=== PATIENT | female | born 1980 | race Caucasian/White ===

== ENCOUNTER 2017-09-23 21:32 | Emergency (ER) | payer OTHER ==
[2017-09-23 21:47] VITALS: RESP 16
[2017-09-23 23:12] LABS: Appearance,Urine Clear (Clear); Bilirubin,Urine Negative (Negative); Blood,Urine Negative (Negative); Color,Urine Colorless; Glucose,Urine (UA) Negative (Negative); Ketones,Urine Negative (Negative); Leukocyte Esterase,Urine Negative (Negative); Nitrite,Urine Negative (Negative); PH, Urine 7.5 (5.0-8.0); Protein,Urine Negative (Negative); Specific Gravity,Urine 1.005 (1.001-1.035); Urobilinogen,Urine <2.0 mg/dL (<2.0)
[2017-09-23 23:22] LABS: Amphetamine Screen,Urine Not Detected (NotDetected); Barbiturate Screen,Urine Detected (NotDetected); Benzodiazepines Screen,Urine Not Detected (NotDetected); Cocaine Screen,Urine Not Detected (NotDetected); Methadone Screen, Urine Not Detected (NotDetected); Opiate Screen,Urine Not Detected (NotDetected); Oxycodone Screen, Urine Not Detected (NotDetected); Phencyclidine Screen,Urine Not Detected (NotDetected); Tricyclic Antidepressant,Urine Not Detected (NotDetected); Urn Cannabinoid Scrn Not Detected (NotDetected)
[2017-09-23 23:34] LABS: Basophils % (A) 1 %; Eosinophils # (A) 0.2 k/uL (0-0.7); Eosinophils % (A) 2 %; HGB 13.3 gm/dL (11.4-16.0); Lymphocytes # (A) 2.9 k/uL (1.0-4.8); Lymphocytes % (A) 36 %; MCH 31.3 pg (25.0-35.0); MCHC 33.2 g/dL (31.0-37.0); MCV 94.4 fL (80.0-100.0); Mean Platelet Volume 7.1; Monocytes # (A) 0.5 k/uL (0-1.0); Monocytes % (A) 7 %; Neutrophils # (A) 4.4 k/uL (1.3-7.7); Neutrophils % (A) 54 %; Platelet Count 229 k/uL (150-450); RBC 4.24 m/uL (3.80-5.40); WBC 8.2 k/uL (3.8-10.6)
[2017-09-23 23:39] LABS: Anion Gap 15 mmol/L; Blood Urea Nitrogen 13 mg/dL (7-17); Calcium 9.4 mg/dL (8.4-10.2); Carbon Dioxide 20 mmol/L (22-30); Chloride 109 mmol/L (98-107); Glucose 108 mg/dL (74-99); Potassium 3.8 mmol/L (3.5-5.1); Sodium 144 mmol/L (137-145)
--- NOTE | 2017-09-23 23:55 | ED ---
Psych HPI - General Chief Complaint: Psychiatric Symptoms Stated Complaint: Mental Health Time Seen by Provider: 09/23/17 21:59 Source: EMS Mode of arrival: EMS - History of Present Illness Initial Comments: 36 years old female with a history of depression and some mental illness comes with her dad about her being depressed and assisted living where she is staying they were concerned about her mood swings he denies any suicidal ideation or there was no history of self-harm in the past and she has no medical complaints no headaches no chest pain or shortness of breath no abdominal pain no frequency urgency dysuria she denies any suicidal or homicidal ideation - Related Data Home Medications Medication Instructions Recorded Confirmed Ammonium Lactate Lotion 1 applic TOPICAL DAILY 09/23/17 09/23/17 [Lac-Hydrin 12% Lotion] Aspirin 81 mg PO DAILY 09/23/17 09/23/17 Butalb/APAP/Caff 50-325-40Mg 1 tab PO BID PRN 09/23/17 09/23/17 [Fioricet 50-325-40] Eslicarbazepine Acetate [Aptiom] 800 mg PO DAILY 09/23/17 09/23/17 Fluticasone Nasal [place] [Flonase 2 spr EA NOSTRIL DAILY 09/23/17 09/23/17 Nasal [place]] LORazepam [Ativan] 0.5 mg PO DAILY PRN 09/23/17 09/23/17 Lacosamide [Vimpat] 100 mg PO BID 09/23/17 09/23/17 Loperamide [Imodium] 2 mg PO DAILY PRN 09/23/17 09/23/17 Loratadine [Claritin] 10 mg PO DAILY PRN 09/23/17 09/23/17 Melatonin 2 mg PO HS 09/23/17 09/23/17 Polyethylene Glycol 3350 [Miralax] 17 gm PO Q72H PRN 09/23/17 09/23/17 Prazosin [Minipress] 2 mg PO HS 09/23/17 09/23/17 Propranolol HCl [Inderal Xl] 80 mg PO DAILY 09/23/17 09/23/17 Ranitidine HCl [Zantac] 150 mg PO BID PRN 09/23/17 09/23/17 Topiramate [Topamax] 100 mg PO BID 09/23/17 09/23/17 Topiramate [Trokendi Xr] 200 mg PO BID 09/23/17 09/23/17 fluvoxaMINE MALEATE [Fluvoxamine 150 mg PO BID 09/23/17 09/23/17 Maleate] guaiFENesin [guaiFENesin Oral 10 mg PO Q6H PRN 09/23/17 09/23/17 Solution] risperiDONE [RisperDAL] 1 mg PO BID 09/23/17 09/23/17 Allergies Allergy/AdvReac Type Severity Reaction Status Date / Time Sulfa (Sulfonamide Allergy Rash/Hives Verified 09/23/17 21:47 Antibiotics) Review of Systems ROS Statement: Those systems with pertinent positive or pertinent negative responses have been documented in the HPI. ROS Other: All systems not noted in ROS Statement are negative. Past Medical History Past Medical History: Hyperlipidemia, Hypertension, Seizure Disorder Additional Past Medical History / Comment(s): cognitive disorder History of Any Multi-Drug Resistant Organisms: None Reported Past Surgical History: No Surgical Hx Reported Past Psychological History: PTSD Smoking Status: Current every day smoker Past Alcohol Use History: Occasional Past Drug Use History: None Reported General Exam - General Exam Comments Initial Comments: General: The patient is awake and alert, in no distress, and does not appear acutely ill. She looks somewhat anxious Skin: Skin is warm and dry and no rashes or lesions are noted. Eye: Pupils are equal, round and reactive to light, extra-ocular movements are intact; there is normal conjunctiva bilaterally. Ears, nose, mouth and throat: There are moist mucous membranes and no oral lesions. Neck: The neck is supple, there is no tenderness or JVD. Cardiovascular: There is a regular rate and rhythm. No murmur, rub or gallop is appreciated. Respiratory: To auscultation bilateral, no wheezing no rhonchi no distress respiratory kuhn noticed Gastrointestinal: Soft, non-distended, non-tender abdomen without masses or organomegaly noted. There is no rebound or guarding present. Bowel sounds are unremarkable. Back: There is no tenderness to palpation in the midline. There is no obvious deformity. Musculoskeletal: Normal ROM, no tenderness, There is no pedal edema. There is no calf tenderness or swelling. No cords were appreciated. Neurological: CN II-XII intact, Cranial nerves III through XII are intact. There are no obvious motor or sensory deficits. Coordination appears grossly intact. Speech is normal. Psychiatric: Cooperative, denies any suicidal or homicidal ideation, Limitations: altered mental status Course Vital Signs 09/23/17 21:36 Temperature 99.0 F Pulse Rate 58 L Respiratory 16 Rate Blood Pressure 133/60 O2 Sat by Pulse 97 Oximetry She was evaluated by psychiatry, they're comfortable sending her back to assisted living and then she will follow-up according to their recommendations him I reviewed her labs CBC, His metabolic panel, urinalysis all are unremarkable Medical Decision Making - Lab Data Result diagrams: 09/23/17 23:13 09/23/17 23:13 Lab Results 09/23/17 09/23/17 09/23/17 Range/Units 23:03 23:03 23:13 WBC (3.8-10.6) k/uL RBC (3.80-5.40) m/uL Hgb (11.4-16.0) gm/dL Hct (34.0-46.0) % MCV (80.0-100.0) fL MCH (25.0-35.0) pg MCHC (31.0-37.0) g/dL RDW (11.5-15.5) % Plt Count (150-450) k/uL Neutrophils % % Lymphocytes % % Monocytes % % Eosinophils % % Basophils % % Neutrophils # (1.3-7.7) k/uL Lymphocytes # (1.0-4.8) k/uL Monocytes # (0-1.0) k/uL Eosinophils # (0-0.7) k/uL Basophils # (0-0.2) k/uL Sodium 144 (137-145) mmol/L Potassium 3.8 (3.5-5.1) mmol/L Chloride 109 H (98-107) mmol/L Carbon Dioxide 20 L (22-30) mmol/L Anion Gap 15 mmol/L BUN 13 (7-17) mg/dL Creatinine 0.80 (0.52-1.04) mg/dL Est GFR (CKD-EPI)AfAm >90 (>60 ml/min/1.73 sqM) Est GFR (CKD-EPI)NonAf >90 (>60 ml/min/1.73 sqM) Glucose 108 H (74-99) mg/dL Calcium 9.4 (8.4-10.2) mg/dL Urine Color Colorless Urine Appearance Clear (Clear) Urine pH 7.5 (5.0-8.0) Ur Specific [place] 1.005 (1.001-1.035) Urine Protein Negative (Negative) Urine Glucose (UA) Negative (Negative) Urine Ketones Negative (Negative) Urine Blood Negative (Negative) Urine Nitrite Negative (Negative) Urine Bilirubin Negative (Negative) Urine Urobilinogen <2.0 (<2.0) mg/dL Ur Leukocyte Esterase Negative (Negative) Urine HCG, Qual Not Detected (Not Detectd) Urine Opiates Screen Not Detected (NotDetected) Ur Oxycodone Screen Not Detected (NotDetected) Urine Methadone Screen Not Detected (NotDetected) Ur Propoxyphene Screen Not Detected (NotDetected) Ur Barbiturates Screen Detected H (NotDetected) U Tricyclic Antidepress Not Detected (NotDetected) Ur Phencyclidine Scrn Not Detected (NotDetected) Ur Amphetamines Screen Not Detected (NotDetected) U Methamphetamines Scrn Not Detected (NotDetected) U Benzodiazepines Scrn Not Detected (NotDetected) Urine Cocaine Screen Not Detected (NotDetected) U Marijuana (THC) Screen Not Detected (NotDetected) 09/23/17 Range/Units 23:13 WBC 8.2 (3.8-10.6) k/uL RBC 4.24 (3.80-5.40) m/uL Hgb 13.3 (11.4-16.0) gm/dL Hct 40.0 (34.0-46.0) % MCV 94.4 (80.0-100.0) fL MCH 31.3 (25.0-35.0) pg MCHC 33.2 (31.0-37.0) g/dL RDW 13.0 (11.5-15.5) % Plt Count 229 (150-450) k/uL Neutrophils % 54 % Lymphocytes % 36 % Monocytes % 7 % Eosinophils % 2 % Basophils % 1 % Neutrophils # 4.4 (1.3-7.7) k/uL Lymphocytes # 2.9 (1.0-4.8) k/uL Monocytes # 0.5 (0-1.0) k/uL Eosinophils # 0.2 (0-0.7) k/uL Basophils # 0.0 (0-0.2) k/uL Sodium (137-145) mmol/L Potassium (3.5-5.1) mmol/L Chloride (98-107) mmol/L Carbon Dioxide (22-30) mmol/L Anion Gap mmol/L BUN (7-17) mg/dL Creatinine (0.52-1.04) mg/dL Est GFR (CKD-EPI)AfAm (>60 ml/min/1.73 sqM) Est GFR (CKD-EPI)NonAf (>60 ml/min/1.73 sqM) Glucose (74-99) mg/dL Calcium (8.4-10.2) mg/dL Urine Color Urine Appearance (Clear) Urine pH (5.0-8.0) Ur Specific [place] (1.001-1.035) Urine Protein (Negative) Urine Glucose (UA) (Negative) Urine Ketones (Negative) Urine Blood (Negative) Urine Nitrite (Negative) Urine Bilirubin (Negative) Urine Urobilinogen (<2.0) mg/dL Ur Leukocyte Esterase (Negative) Urine HCG, Qual (Not Detectd) Urine Opiates Screen (NotDetected) Ur Oxycodone Screen (NotDetected) Urine Methadone Screen (NotDetected) Ur Propoxyphene Screen (NotDetected) Ur Barbiturates Screen (NotDetected) U Tricyclic Antidepress (NotDetected) Ur Phencyclidine Scrn (NotDetected) Ur Amphetamines Screen (NotDetected) U Methamphetamines Scrn (NotDetected) U Benzodiazepines Scrn (NotDetected) Urine Cocaine Screen (NotDetected) U Marijuana (THC) Screen (NotDetected) Disposition Clinical Impression: Depression Disposition: HOME SELF-CARE Condition: Good Instructions: Depression (ED) Is patient prescribed a controlled substance at d/c from ED?: No If prescribed controlled substance>3 days was MAPS reviewed?: No When asked, does pt state using other controlled substances?: No Referrals: Sunshine Shipley DO [Primary Care Provider] - 1-2 days
[2017-09-24 00:19] VITALS: BP 128/80; PULSE 60; TEMP 98.7
== END 2017-09-24 00:24 | disposition home or self-care (01) ==
LOC: EEVIPCON 21:32 → EC 21:32
DX: F32.9 Major depressive disorder, single episode, unspecified (principal); R41.82 Altered mental status, unspecified; I10 Essential (primary) hypertension; G40.909 Epilepsy, unspecified, not intractable, without status epilepticus; F17.200 Nicotine dependence, unspecified, uncomplicated; Z79.51 Long term (current) use of inhaled steroids; Z79.82 Long term (current) use of aspirin; Z79.899 Other long term (current) drug therapy; Z88.2 Allergy status to sulfonamides
CPT/HCPCS: 36415; 80048; 80306; 81003; 81025; 82075; 85025; 99284

== ENCOUNTER 2017-09-25 17:26 | Inpatient (IN) | payer MEDICAID, OTHER ==
--- NOTE | 2017-09-25 19:11 | ED ---
General Adult HPI - General Chief complaint: Psychiatric Symptoms Stated complaint: Mental Health Eval Time Seen by Provider: 09/25/17 18:17 Source: family (Father), Caregiver Mode of arrival: ambulatory Limitations: no limitations - History of Present Illness Initial comments: This patient is a 36-year-old woman who presents to have psychiatric evaluation. The patient was seen here on Tuesday for having some suicidal thoughts and depressed mood. At that time it was felt that she was a good candidate for outpatient therapy, and she was discharged. The patient has subsequently reported to her father that she has considered cutting her wrists using a broken glass. As the patient's symptoms seem to be worsening she returns here for reevaluation. -: days(s) - Related Data Home Medications Medication Instructions Recorded Confirmed Ammonium Lactate Lotion 1 applic TOPICAL DAILY 09/23/17 09/23/17 [Lac-Hydrin 12% Lotion] Aspirin 81 mg PO DAILY 09/23/17 09/23/17 Butalb/APAP/Caff 50-325-40Mg 1 tab PO BID PRN 09/23/17 09/23/17 [Fioricet 50-325-40] Eslicarbazepine Acetate [Aptiom] 800 mg PO DAILY 09/23/17 09/23/17 Fluticasone Nasal [place] [Flonase 2 spr EA NOSTRIL DAILY 09/23/17 09/23/17 Nasal [place]] LORazepam [Ativan] 0.5 mg PO DAILY PRN 09/23/17 09/23/17 Lacosamide [Vimpat] 100 mg PO BID 09/23/17 09/23/17 Loperamide [Imodium] 2 mg PO DAILY PRN 09/23/17 09/23/17 Loratadine [Claritin] 10 mg PO DAILY PRN 09/23/17 09/23/17 Melatonin 2 mg PO HS 09/23/17 09/23/17 Polyethylene Glycol 3350 [Miralax] 17 gm PO Q72H PRN 09/23/17 09/23/17 Prazosin [Minipress] 2 mg PO HS 09/23/17 09/23/17 Propranolol HCl [Inderal Xl] 80 mg PO DAILY 09/23/17 09/23/17 Ranitidine HCl [Zantac] 150 mg PO BID PRN 09/23/17 09/23/17 Topiramate [Topamax] 100 mg PO BID 09/23/17 09/23/17 Topiramate [Trokendi Xr] 200 mg PO BID 09/23/17 09/23/17 fluvoxaMINE MALEATE [Fluvoxamine 150 mg PO BID 09/23/17 09/23/17 Maleate] guaiFENesin [guaiFENesin Oral 10 mg PO Q6H PRN 09/23/17 09/23/17 Solution] risperiDONE [RisperDAL] 1 mg PO BID 09/23/17 09/23/17 Allergies Allergy/AdvReac Type Severity Reaction Status Date / Time Sulfa (Sulfonamide Allergy Rash/Hives Verified 09/25/17 17:48 Antibiotics) Review of Systems ROS Statement: Those systems with pertinent positive or pertinent negative responses have been documented in the HPI. ROS Other: All systems not noted in ROS Statement are negative. Past Medical History Past Medical History: Hyperlipidemia, Hypertension, Seizure Disorder Additional Past Medical History / Comment(s): cognitive disorder History of Any Multi-Drug Resistant Organisms: None Reported Past Surgical History: No Surgical Hx Reported Past Psychological History: PTSD Smoking Status: Current every day smoker Past Alcohol Use History: Occasional Past Drug Use History: None Reported General Exam Limitations: no limitations Course Vital Signs 09/25/17 17:44 Temperature 97.9 F Pulse Rate 73 Respiratory 18 Rate Blood Pressure 95/53 O2 Sat by Pulse 98 Oximetry Disposition Referrals: Sunshine Shipley DO [Primary Care Provider] - 1-2 days
--- NOTE | 2017-09-25 19:12 | ED ---
Psych HPI - General Chief Complaint: Psychiatric Symptoms Stated Complaint: Mental Health Eval Time Seen by Provider: 09/25/17 18:17 Source: family (Father), Caregiver Mode of arrival: ambulatory - History of Present Illness Initial Comments: This patient is a 36-year-old woman who presents to have psychiatric evaluation. The patient was seen here on Tuesday for having some suicidal thoughts and depressed mood. At that time it was felt that she was a good candidate for outpatient therapy, and she was discharged. The patient has subsequently reported to her father that she has considered cutting her wrists using a broken glass. As the patient's symptoms seem to be worsening she returns here for reevaluation. MD Complaint: suicidal ideation, feels depressed -: days(s) Associated Psychiatric Symptoms: depression, suicidal ideation History of same: Yes Quality: getting worse Improves With: none Worsens With: none - Related Data Home Medications Medication Instructions Recorded Confirmed Ammonium Lactate Lotion 1 applic TOPICAL DAILY 09/23/17 09/23/17 [Lac-Hydrin 12% Lotion] Aspirin 81 mg PO DAILY 09/23/17 09/23/17 Butalb/APAP/Caff 50-325-40Mg 1 tab PO BID PRN 09/23/17 09/23/17 [Fioricet 50-325-40] Eslicarbazepine Acetate [Aptiom] 800 mg PO DAILY 09/23/17 09/23/17 Fluticasone Nasal [place] [Flonase 2 spr EA NOSTRIL DAILY 09/23/17 09/23/17 Nasal [place]] LORazepam [Ativan] 0.5 mg PO DAILY PRN 09/23/17 09/23/17 Lacosamide [Vimpat] 100 mg PO BID 09/23/17 09/23/17 Loperamide [Imodium] 2 mg PO DAILY PRN 09/23/17 09/23/17 Loratadine [Claritin] 10 mg PO DAILY PRN 09/23/17 09/23/17 Melatonin 2 mg PO HS 09/23/17 09/23/17 Polyethylene Glycol 3350 [Miralax] 17 gm PO Q72H PRN 09/23/17 09/23/17 Prazosin [Minipress] 2 mg PO HS 09/23/17 09/23/17 Propranolol HCl [Inderal Xl] 80 mg PO DAILY 09/23/17 09/23/17 Ranitidine HCl [Zantac] 150 mg PO BID PRN 09/23/17 09/23/17 Topiramate [Topamax] 100 mg PO BID 09/23/17 09/23/17 Topiramate [Trokendi Xr] 200 mg PO BID 09/23/17 09/23/17 fluvoxaMINE MALEATE [Fluvoxamine 150 mg PO BID 09/23/17 09/23/17 Maleate] guaiFENesin [guaiFENesin Oral 10 mg PO Q6H PRN 09/23/17 09/23/17 Solution] risperiDONE [RisperDAL] 1 mg PO BID 09/23/17 09/23/17 Allergies Allergy/AdvReac Type Severity Reaction Status Date / Time Sulfa (Sulfonamide Allergy Rash/Hives Verified 09/25/17 17:48 Antibiotics) Review of Systems ROS Statement: Those systems with pertinent positive or pertinent negative responses have been documented in the HPI. ROS Other: All systems not noted in ROS Statement are negative. Respiratory: Denies: cough, dyspnea Cardiovascular: Denies: chest pain, palpitations Gastrointestinal: Denies: abdominal pain, vomiting, diarrhea Genitourinary: Denies: dysuria, hematuria Neurological: Denies: headache Psychiatric: Reports: depression, suicidal thoughts. Denies: auditory hallucinations, visual hallucinations, homicidal thoughts Past Medical History Past Medical History: Hyperlipidemia, Hypertension, Seizure Disorder Additional Past Medical History / Comment(s): cognitive disorder History of Any Multi-Drug Resistant Organisms: None Reported Past Surgical History: No Surgical Hx Reported Past Psychological History: PTSD Smoking Status: Current every day smoker Past Alcohol Use History: Occasional Past Drug Use History: None Reported General Exam Limitations: no limitations General appearance: alert, in no apparent distress, obese Head exam: Present: atraumatic Respiratory exam: Present: normal lung sounds bilaterally. Absent: respiratory distress, wheezes, rales, rhonchi, stridor Cardiovascular Exam: Present: regular rate, normal rhythm, normal heart sounds. Absent: systolic murmur, diastolic murmur, rubs, gallop GI/Abdominal exam: Present: soft. Absent: distended, tenderness, guarding, rebound Neurological exam: Present: alert Psychiatric exam: Present: normal affect, depressed, suicidal ideation. Absent : anxious, flat affect, manic, homicidal ideation Skin exam: Present: warm, dry, intact, normal color. Absent: rash Course Vital Signs 09/25/17 17:44 Temperature 97.9 F Pulse Rate 73 Respiratory 18 Rate Blood Pressure 95/53 O2 Sat by Pulse 98 Oximetry Medical Decision Making - Lab Data Result diagrams: 09/25/17 20:00 09/25/17 20:00 Lab Results 09/25/17 09/25/17 09/25/17 Range/Units 20:00 20:00 21:09 WBC 7.9 (3.8-10.6) k/uL RBC 4.46 (3.80-5.40) m/uL Hgb 14.1 (11.4-16.0) gm/dL Hct 42.0 (34.0-46.0) % MCV 94.2 (80.0-100.0) fL MCH 31.7 (25.0-35.0) pg MCHC 33.6 (31.0-37.0) g/dL RDW 12.8 (11.5-15.5) % Plt Count 243 (150-450) k/uL Neutrophils % 57 % Lymphocytes % 33 % Monocytes % 6 % Eosinophils % 2 % Basophils % 1 % Neutrophils # 4.5 (1.3-7.7) k/uL Lymphocytes # 2.6 (1.0-4.8) k/uL Monocytes # 0.5 (0-1.0) k/uL Eosinophils # 0.2 (0-0.7) k/uL Basophils # 0.0 (0-0.2) k/uL Sodium 147 H (137-145) mmol/L Potassium 4.1 (3.5-5.1) mmol/L Chloride 111 H (98-107) mmol/L Carbon Dioxide 21 L (22-30) mmol/L Anion Gap 15 mmol/L BUN 16 (7-17) mg/dL Creatinine 1.10 H (0.52-1.04) mg/dL Est GFR (CKD-EPI)AfAm 76 (>60 ml/min/1.73 sqM) Est GFR (CKD-EPI)NonAf 66 (>60 ml/min/1.73 sqM) Glucose 97 (74-99) mg/dL Calcium 9.3 (8.4-10.2) mg/dL Urine HCG, Qual (Not Detectd) Urine Opiates Screen Not Detected (NotDetected) Ur Oxycodone Screen Not Detected (NotDetected) Urine Methadone Screen Not Detected (NotDetected) Ur Propoxyphene Screen Not Detected (NotDetected) Ur Barbiturates Screen Detected H (NotDetected) U Tricyclic Antidepress Not Detected (NotDetected) Ur Phencyclidine Scrn Not Detected (NotDetected) Ur Amphetamines Screen Not Detected (NotDetected) U Methamphetamines Scrn Not Detected (NotDetected) U Benzodiazepines Scrn Not Detected (NotDetected) Urine Cocaine Screen Not Detected (NotDetected) U Marijuana (THC) Screen Not Detected (NotDetected) 09/25/17 Range/Units 21:09 WBC (3.8-10.6) k/uL RBC (3.80-5.40) m/uL Hgb (11.4-16.0) gm/dL Hct (34.0-46.0) % MCV (80.0-100.0) fL MCH (25.0-35.0) pg MCHC (31.0-37.0) g/dL RDW (11.5-15.5) % Plt Count (150-450) k/uL Neutrophils % % Lymphocytes % % Monocytes % % Eosinophils % % Basophils % % Neutrophils # (1.3-7.7) k/uL Lymphocytes # (1.0-4.8) k/uL Monocytes # (0-1.0) k/uL Eosinophils # (0-0.7) k/uL Basophils # (0-0.2) k/uL Sodium (137-145) mmol/L Potassium (3.5-5.1) mmol/L Chloride (98-107) mmol/L Carbon Dioxide (22-30) mmol/L Anion Gap mmol/L BUN (7-17) mg/dL Creatinine (0.52-1.04) mg/dL Est GFR (CKD-EPI)AfAm (>60 ml/min/1.73 sqM) Est GFR (CKD-EPI)NonAf (>60 ml/min/1.73 sqM) Glucose (74-99) mg/dL Calcium (8.4-10.2) mg/dL Urine HCG, Qual Not Detected (Not Detectd) Urine Opiates Screen (NotDetected) Ur Oxycodone Screen (NotDetected) Urine Methadone Screen (NotDetected) Ur Propoxyphene Screen (NotDetected) Ur Barbiturates Screen (NotDetected) U Tricyclic Antidepress (NotDetected) Ur Phencyclidine Scrn (NotDetected) Ur Amphetamines Screen (NotDetected) U Methamphetamines Scrn (NotDetected) U Benzodiazepines Scrn (NotDetected) Urine Cocaine Screen (NotDetected) U Marijuana (THC) Screen (NotDetected) Disposition Clinical Impression: Suicidal ideation, Mood disorder Disposition: ADMITTED IP TO THIS [facility] Condition: Fair Is patient prescribed a controlled substance at d/c from ED?: No
[2017-09-25 20:13] LABS: Basophils % (A) 1 %; Eosinophils # (A) 0.2 k/uL (0-0.7); Eosinophils % (A) 2 %; HGB 14.1 gm/dL (11.4-16.0); Lymphocytes # (A) 2.6 k/uL (1.0-4.8); Lymphocytes % (A) 33 %; MCH 31.7 pg (25.0-35.0); MCHC 33.6 g/dL (31.0-37.0); MCV 94.2 fL (80.0-100.0); Mean Platelet Volume 6.6; Monocytes # (A) 0.5 k/uL (0-1.0); Monocytes % (A) 6 %; Neutrophils # (A) 4.5 k/uL (1.3-7.7); Neutrophils % (A) 57 %; Platelet Count 243 k/uL (150-450); RBC 4.46 m/uL (3.80-5.40); RDW 12.8 % (11.5-15.5); WBC 7.9 k/uL (3.8-10.6)
[2017-09-25 20:26] LABS: Calcium 9.3 mg/dL (8.4-10.2); Potassium 4.1 mmol/L (3.5-5.1)
[2017-09-25 21:42] LABS: Amphetamine Screen,Urine Not Detected (NotDetected); Barbiturate Screen,Urine Detected (NotDetected); Benzodiazepines Screen,Urine Not Detected (NotDetected); Cocaine Screen,Urine Not Detected (NotDetected); Methadone Screen, Urine Not Detected (NotDetected); Opiate Screen,Urine Not Detected (NotDetected); Oxycodone Screen, Urine Not Detected (NotDetected); Phencyclidine Screen,Urine Not Detected (NotDetected); Tricyclic Antidepressant,Urine Not Detected (NotDetected); Urn Cannabinoid Scrn Not Detected (NotDetected)
[2017-09-26] MEDS ORDERED: MAGNESIUM HYDROXIDE 2,400 MG/10 ML CUP PO PRN (00:39)
[2017-09-26] MEDS ORDERED: MAG HYDROX/AL HYDROX/SIMETH 30 ML CUP PO PRN (00:39)
[2017-09-26] MEDS ORDERED: LORATADINE 10 MG TAB PO PRN (00:44)
[2017-09-26] MEDS ORDERED: guaiFENesin SYRUP 100MG/5ML 200 MG/10 ML CUP PO PRN (00:44)
[2017-09-26] MEDS ORDERED: LORazepam 0.5 MG TAB PO PRN (00:44)
[2017-09-26] MEDS ORDERED: POLYETHYLENE GLYCOL 3350 17 GM POWD.PACK PO PRN (00:44)
[2017-09-26] MEDS ORDERED: FAMOTIDINE 20 MG TAB PO PRN (00:44)
[2017-09-26] MEDS ORDERED: LOPERAMIDE 2 MG CAP PO PRN (00:44)
[2017-09-26] MEDS ORDERED: TOPIRAMATE 100 MG TAB PO SCH (00:45)
[2017-09-26] MEDS: MELATONIN 1 MG TAB PO SCH ×2 (01:24→21:08)
[2017-09-26] MEDS: risperiDONE 1 MG TAB PO SCH ×3 (01:26→21:09)
[2017-09-26] MEDS: PRAZOSIN 1 MG CAP PO SCH ×2 (01:26→21:08)
[2017-09-26] MEDS: TOPIRAMATE 100 MG TAB PO SCH ×3 (01:26→21:09)
[2017-09-26] MEDS: LACOSAMIDE 50 MG TABLET PO SCH ×3 (02:11→21:10)
[2017-09-26 05:53] VITALS: BMI 39.4
[2017-09-26] MEDS: FLUTICASONE 50MCG/SPRAY NASAL 16GM EA NOSTRIL SCH (08:46)
[2017-09-26] MEDS: ASPIRIN 81 MG PO SCH (08:47)
[2017-09-26] MEDS: AMMONIUM LACTATE 12% LOTION 225 GM BTL TOPICAL SCH (08:48)
[2017-09-26] MEDS: ESLICARBAZEPINE ACETATE 800 MG PO SCH (08:49)
[2017-09-26] MEDS ORDERED: PROPRANOLOL LA 80 MG CAP.SA.24H PO SCH ×2 (09:00→11:40)
--- NOTE | 2017-09-26 13:11 | P.CONS ---
History of Present Illness - History of Present Illness 32-year-old female admitted for suicidal ideation and depression patient is a poor historian probably because the medication she is receiving for depression and anxiety. Patient denied any symptoms at this point of time patient does have history of hypertension and patient is on propranolol, patient is bit bradycardic mildly low normal blood pressure because of which will discontinue propranolol watch her heart rate and blood pressure patient does have history of seizure disorder, patient does smoke counseling was provided regarding that Review of Systems REVIEW OF SYSTEMS: CONSTITUTIONAL: No fever, no malaise, no fatigue. HEENT: No recent visual problems or hearing problems. Denied any sore throat. CARDIOVASCULAR: No chest pain, orthopnea, PND, no palpitations, no syncope. PULMONARY: No shortness of breath, no cough, no hemoptysis. GASTROINTESTINAL: No diarrhea, no nausea, no vomiting, no abdominal pain. Normoactive bowel sounds. NEUROLOGICAL: No headaches, no weakness, no numbness. HEMATOLOGICAL: Denies any bleeding or petechiae. GENITOURINARY: Denies any burning micturition, frequency, or urgency. MUSCULOSKELETAL/RHEUMATOLOGICAL: Denies any joint pain, swelling, or any muscle pain. ENDOCRINE: Denies any polyuria or polydipsia. The rest of the 14-point review of systems is negative. Past Medical History Past Medical History: Hyperlipidemia, Hypertension, Seizure Disorder Additional Past Medical History / Comment(s): cognitive disorder History of Any Multi-Drug Resistant Organisms: None Reported Past Surgical History: No Surgical Hx Reported Smoking Status: Current every day smoker Medications and Allergies Home Medications Medication Instructions Recorded Confirmed Type Ammonium Lactate Lotion 1 applic TOPICAL DAILY 09/23/17 09/26/17 History [Lac-Hydrin 12% Lotion] Aspirin 81 mg PO DAILY 09/23/17 09/26/17 History Butalb/APAP/Caff 50-325-40Mg 1 tab PO BID PRN 09/23/17 09/26/17 History [Fioricet 50-325-40] Eslicarbazepine Acetate [Aptiom] 800 mg PO DAILY 09/23/17 09/26/17 History Fluticasone Nasal [place] [Flonase 2 spr EA NOSTRIL DAILY 09/23/17 09/26/17 History Nasal [place]] LORazepam [Ativan] 0.5 mg PO DAILY PRN 09/23/17 09/26/17 History Lacosamide [Vimpat] 100 mg PO BID 09/23/17 09/26/17 History Loperamide [Imodium] 2 mg PO DAILY PRN 09/23/17 09/26/17 History Loratadine [Claritin] 10 mg PO DAILY PRN 09/23/17 09/26/17 History Melatonin 2 mg PO HS 09/23/17 09/26/17 History Polyethylene Glycol 3350 [Miralax] 17 gm PO Q72H PRN 09/23/17 09/26/17 History Prazosin [Minipress] 2 mg PO HS 09/23/17 09/26/17 History Propranolol HCl [Inderal Xl] 80 mg PO DAILY 09/23/17 09/26/17 History Ranitidine HCl [Zantac] 150 mg PO BID PRN 09/23/17 09/26/17 History Topiramate [Topamax] 100 mg PO BID 09/23/17 09/26/17 History Topiramate [Trokendi Xr] 200 mg PO BID 09/23/17 09/26/17 History fluvoxaMINE MALEATE [Fluvoxamine 150 mg PO BID 09/23/17 09/26/17 History Maleate] guaiFENesin [guaiFENesin Oral 10 mg PO Q6H PRN 09/23/17 09/26/17 History Solution] risperiDONE [RisperDAL] 1 mg PO BID 09/23/17 09/26/17 History Allergies Allergy/AdvReac Type Severity Reaction Status Date / Time Sulfa (Sulfonamide Allergy Rash/Hives Verified 09/25/17 17:48 Antibiotics) Physical Exam Vitals: Vital Signs Temp Pulse Pulse Pulse Resp BP BP 09/26/17 09:50 54 L 18 109/53 09/26/17 08:45 55 L 16 97/63 09/26/17 06:18 97.6 F 48 L 16 09/26/17 04:20 98.0 F 56 L 16 09/26/17 01:33 54 L 16 09/25/17 21:35 98.6 F 52 L 16 115/51 09/25/17 17:44 97.9 F 73 18 95/53 BP Pulse Ox 09/26/17 09:50 09/26/17 08:45 98 09/26/17 06:18 98/52 09/26/17 04:20 103/64 09/26/17 01:33 120/56 09/25/17 21:35 96 09/25/17 17:44 98 Intake and Output 09/25/17 09/26/17 09/26/17 22:59 06:59 14:59 Other: Weight 104.326 kg 104.32 kg PHYSICAL EXAMINATION: GENERAL: The patient is alert and oriented x3, not in any acute distress. Well developed, well nourished. HEENT: Pupils are round and equally reacting to light. EOMI. No scleral icterus. No conjunctival pallor. Normocephalic, atraumatic. No pharyngeal erythema. No thyromegaly. CARDIOVASCULAR: S1 and S2 present. No murmurs, rubs, or gallops. PULMONARY: Chest is clear to auscultation, no wheezing or crackles. ABDOMEN: Soft, nontender, nondistended, normoactive bowel sounds. No palpable organomegaly. MUSCULOSKELETAL: No joint swelling or deformity. EXTREMITIES: No cyanosis, clubbing, or pedal edema. NEUROLOGICAL: Gross neurological examination did not reveal any focal deficits. SKIN: No rashes. Results CBC & Chem 7: 09/25/17 20:00 09/25/17 20:00 Labs: Abnormal Lab Results - Last 24 Hours (Table) 09/25/17 09/25/17 Range/Units 20:00 21:09 Sodium 147 H (137-145) mmol/L Chloride 111 H (98-107) mmol/L Carbon Dioxide 21 L (22-30) mmol/L Creatinine 1.10 H (0.52-1.04) mg/dL Ur Barbiturates Screen Detected H (NotDetected) Assessment and Plan Plan: -Hypertension: Management as mentioned above -Seizure disorder patient was resumed on her antiseizure medications which will be continued -Depression: Management as per primary service -Nicotine abuse: Counseling was provided
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
[2017-09-26 17:54] LABS: Amorphous Sediment,Urine Rare /hpf; Appearance,Urine Cloudy (Clear); Bilirubin,Urine Negative (Negative); Blood,Urine Negative (Negative); Color,Urine Light Yellow; Glucose,Urine (UA) Negative (Negative); Ketones,Urine Negative (Negative); Leukocyte Esterase,Urine Negative (Negative); Mucus,Urine Rare /hpf; Nitrite,Urine Negative (Negative); Protein,Urine Negative (Negative); Specific Gravity,Urine 1.007 (1.001-1.035); Squamous Epithelial Cell,Urine 1 /hpf (0-4); Urobilinogen,Urine <2.0 mg/dL (<2.0)
[2017-09-27] MEDS: ASPIRIN 81 MG PO SCH (09:37)
[2017-09-27] MEDS: LACOSAMIDE 50 MG TABLET PO SCH ×2 (09:37→20:52)
[2017-09-27] MEDS: TOPIRAMATE 100 MG TAB PO SCH ×2 (09:38→20:53)
[2017-09-27] MEDS: AMMONIUM LACTATE 12% LOTION 225 GM BTL TOPICAL SCH (09:38)
[2017-09-27] MEDS: risperiDONE 1 MG TAB PO SCH ×2 (09:38→20:51)
[2017-09-27] MEDS: ESLICARBAZEPINE ACETATE 800 MG PO SCH (09:39)
[2017-09-27] MEDS: FLUTICASONE 50MCG/SPRAY NASAL 16GM EA NOSTRIL SCH (09:40)
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
[2017-09-27] MEDS: MELATONIN 1 MG TAB PO SCH (20:52)
[2017-09-27] MEDS: PRAZOSIN 1 MG CAP PO SCH (20:52)
[2017-09-27 20:53] LABS: Hemoglobin A1C 5.7 % (4.0-6.0)
[2017-09-27] MEDS: TROKENDI 200 MG PO SCH (20:57)
[2017-09-28] MEDS: risperiDONE 1 MG TAB PO SCH ×2 (08:41→20:58)
[2017-09-28] MEDS: FLUTICASONE 50MCG/SPRAY NASAL 16GM EA NOSTRIL SCH (08:41)
[2017-09-28] MEDS: AMMONIUM LACTATE 12% LOTION 225 GM BTL TOPICAL SCH (08:41)
[2017-09-28] MEDS: TOPIRAMATE 100 MG TAB PO SCH ×2 (08:41→20:58)
[2017-09-28] MEDS: ESLICARBAZEPINE ACETATE 800 MG PO SCH (08:41)
[2017-09-28] MEDS: LACOSAMIDE 50 MG TABLET PO SCH ×2 (08:41→21:00)
[2017-09-28] MEDS: ASPIRIN 81 MG PO SCH (08:41)
[2017-09-28] MEDS: TROKENDI 200 MG PO SCH ×2 (08:42→21:00)
[2017-09-28] MEDS: PRAZOSIN 1 MG CAP PO SCH ×2 (10:09→20:58)
[2017-09-28 10:16] LABS: Anion Gap 13 mmol/L; Blood Urea Nitrogen 13 mg/dL (7-17); Calcium 9.2 mg/dL (8.4-10.2); Carbon Dioxide 23 mmol/L (22-30); Chloride 107 mmol/L (98-107); Glucose 147 mg/dL (74-99); Sodium 143 mmol/L (137-145)
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
[2017-09-28] MEDS: MELATONIN 1 MG TAB PO SCH (20:58)
[2017-09-29] MEDS: ESLICARBAZEPINE ACETATE 800 MG PO SCH (08:32)
[2017-09-29] MEDS: TROKENDI 200 MG PO SCH ×2 (08:32→21:41)
[2017-09-29] MEDS: FLUTICASONE 50MCG/SPRAY NASAL 16GM EA NOSTRIL SCH (08:32)
[2017-09-29] MEDS: ASPIRIN 81 MG PO SCH (08:33)
[2017-09-29] MEDS: LACOSAMIDE 50 MG TABLET PO SCH ×2 (08:33→21:40)
[2017-09-29] MEDS: risperiDONE 1 MG TAB PO SCH ×2 (08:33→21:39)
[2017-09-29] MEDS: FAMOTIDINE 20 MG TAB PO PRN (08:33)
[2017-09-29] MEDS: PRAZOSIN 1 MG CAP PO SCH ×2 (08:33→21:40)
[2017-09-29] MEDS: TOPIRAMATE 100 MG TAB PO SCH ×2 (08:33→21:40)
[2017-09-29] MEDS: AMMONIUM LACTATE 12% LOTION 225 GM BTL TOPICAL SCH (08:35)
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
[2017-09-29] MEDS: MELATONIN 1 MG TAB PO SCH (21:39)
[2017-09-30] MEDS: TROKENDI 200 MG PO SCH ×2 (08:32→20:13)
[2017-09-30] MEDS: risperiDONE 1 MG TAB PO SCH ×2 (08:32→20:12)
[2017-09-30] MEDS: FLUTICASONE 50MCG/SPRAY NASAL 16GM EA NOSTRIL SCH (08:32)
[2017-09-30] MEDS: LACOSAMIDE 50 MG TABLET PO SCH ×2 (08:32→20:11)
[2017-09-30] MEDS: TOPIRAMATE 100 MG TAB PO SCH ×2 (08:32→20:12)
[2017-09-30] MEDS: ESLICARBAZEPINE ACETATE 800 MG PO SCH (08:32)
[2017-09-30] MEDS: ASPIRIN 81 MG PO SCH (08:32)
[2017-09-30] MEDS: PRAZOSIN 1 MG CAP PO SCH ×2 (08:32→20:12)
[2017-09-30] MEDS: AMMONIUM LACTATE 12% LOTION 225 GM BTL TOPICAL SCH (08:34)
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
[2017-09-30] MEDS: MELATONIN 1 MG TAB PO SCH (20:11)
[2017-10-01] MEDS: ESLICARBAZEPINE ACETATE 800 MG PO SCH (08:45)
[2017-10-01] MEDS: FLUTICASONE 50MCG/SPRAY NASAL 16GM EA NOSTRIL SCH (08:45)
[2017-10-01] MEDS: TROKENDI 200 MG PO SCH ×2 (08:45→21:01)
[2017-10-01] MEDS: AMMONIUM LACTATE 12% LOTION 225 GM BTL TOPICAL SCH (08:45)
[2017-10-01] MEDS: ASPIRIN 81 MG PO SCH (08:49)
[2017-10-01] MEDS: LACOSAMIDE 50 MG TABLET PO SCH ×2 (08:49→21:01)
[2017-10-01] MEDS: TOPIRAMATE 100 MG TAB PO SCH ×2 (08:50→21:02)
[2017-10-01] MEDS: PRAZOSIN 1 MG CAP PO SCH ×2 (08:50→21:02)
[2017-10-01] MEDS: risperiDONE 1 MG TAB PO SCH ×2 (08:50→21:02)
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
[2017-10-01] MEDS: MELATONIN 3 MG TABLET PO SCH (21:03)
[2017-10-02 03:52] VITALS: RESP 16
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
[2017-10-02] MEDS: ESLICARBAZEPINE ACETATE 800 MG PO SCH (10:47)
[2017-10-02] MEDS: FLUTICASONE 50MCG/SPRAY NASAL 16GM EA NOSTRIL SCH (10:47)
[2017-10-02] MEDS: AMMONIUM LACTATE 12% LOTION 225 GM BTL TOPICAL SCH (10:47)
[2017-10-02] MEDS: ASPIRIN 81 MG PO SCH (10:47)
[2017-10-02] MEDS: TROKENDI 200 MG PO SCH ×2 (10:48→20:17)
[2017-10-02] MEDS: LACOSAMIDE 50 MG TABLET PO SCH ×2 (10:49→20:15)
[2017-10-02] MEDS: risperiDONE 1 MG TAB PO SCH ×2 (10:49→20:16)
[2017-10-02] MEDS: PRAZOSIN 1 MG CAP PO SCH ×2 (10:49→20:16)
[2017-10-02] MEDS: TOPIRAMATE 100 MG TAB PO SCH ×2 (10:50→20:15)
[2017-10-02] MEDS: MELATONIN 3 MG TABLET PO SCH (20:16)
[2017-10-02] MEDS: BUTALB/APAP/CAFF 50-325-40MG TAB PO PRN (21:17)
[2017-10-03] MEDS: ESLICARBAZEPINE ACETATE 800 MG PO SCH (08:51)
[2017-10-03] MEDS: FLUTICASONE 50MCG/SPRAY NASAL 16GM EA NOSTRIL SCH (08:51)
[2017-10-03] MEDS: TROKENDI 200 MG PO SCH ×2 (08:51→20:59)
[2017-10-03] MEDS: AMMONIUM LACTATE 12% LOTION 225 GM BTL TOPICAL SCH (08:52)
[2017-10-03] MEDS: ASPIRIN 81 MG PO SCH (08:52)
[2017-10-03] MEDS: TOPIRAMATE 100 MG TAB PO SCH ×2 (08:52→21:00)
[2017-10-03] MEDS: risperiDONE 1 MG TAB PO SCH ×2 (08:52→20:59)
[2017-10-03] MEDS: PRAZOSIN 1 MG CAP PO SCH ×2 (08:52→21:00)
[2017-10-03] MEDS: LACOSAMIDE 50 MG TABLET PO SCH ×2 (08:52→21:02)
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
[2017-10-03] MEDS: BUTALB/APAP/CAFF 50-325-40MG TAB PO PRN (17:34)
[2017-10-03] MEDS: MELATONIN 3 MG TABLET PO SCH (20:59)
[2017-10-04] MEDS: ALBUTEROL INHALER 60 PUFF/8 GM INHALER INHALATION PRN ×2 (02:31→21:29)
[2017-10-04] MEDS: TROKENDI 200 MG PO SCH ×2 (08:09→21:06)
[2017-10-04] MEDS: AMMONIUM LACTATE 12% LOTION 225 GM BTL TOPICAL SCH (08:09)
[2017-10-04] MEDS: ESLICARBAZEPINE ACETATE 800 MG PO SCH (08:09)
[2017-10-04] MEDS: TOPIRAMATE 100 MG TAB PO SCH ×2 (08:10→21:06)
[2017-10-04] MEDS: ASPIRIN 81 MG PO SCH (08:10)
[2017-10-04] MEDS: FLUTICASONE 50MCG/SPRAY NASAL 16GM EA NOSTRIL SCH (08:10)
[2017-10-04] MEDS: risperiDONE 1 MG TAB PO SCH (08:10)
[2017-10-04] MEDS: PRAZOSIN 1 MG CAP PO SCH ×2 (08:10→21:06)
[2017-10-04] MEDS: LACOSAMIDE 50 MG TABLET PO SCH ×2 (08:10→21:06)
[2017-10-04] MEDS: ACETAMINOPHEN TAB 325 MG TAB PO PRN ×2 (09:26→18:39)
[2017-10-04] MEDS: FAMOTIDINE 20 MG TAB PO PRN (12:38)
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
[2017-10-04] MEDS ORDERED: risperiDONE 2 MG TAB PO SCH (21:00)
[2017-10-04] MEDS: MELATONIN 3 MG TABLET PO SCH (21:06)
[2017-10-05 06:55] VITALS: BP 90/51; PULSE 74; TEMP 97.8
[2017-10-05] MEDS: TROKENDI 200 MG PO SCH (09:21)
[2017-10-05] MEDS: FLUTICASONE 50MCG/SPRAY NASAL 16GM EA NOSTRIL SCH (09:21)
[2017-10-05] MEDS: ESLICARBAZEPINE ACETATE 800 MG PO SCH (09:22)
[2017-10-05] MEDS: LACOSAMIDE 50 MG TABLET PO SCH (09:22)
[2017-10-05] MEDS: ASPIRIN 81 MG PO SCH (09:23)
[2017-10-05] MEDS: AMMONIUM LACTATE 12% LOTION 225 GM BTL TOPICAL SCH (09:23)
[2017-10-05] MEDS: TOPIRAMATE 100 MG TAB PO SCH (09:23)
[2017-10-05] MEDS: PRAZOSIN 1 MG CAP PO SCH (09:23)
[2017-10-05] MEDS: risperiDONE 1 MG TAB PO SCH (09:23)
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
[2017-10-05] MEDS ORDERED: POLYETHYLENE GLYCOL 3350 17 GM POWD.PACK PO STA (11:35)
== END 2017-10-05 13:50 | disposition home or self-care (01) | DRG 881 ==
LOC: EC 17:26 → 3MHU 21:25
PROVIDERS: ADMIT Psychiatry & Neurology Psychiatry; ATTEND Psychiatry & Neurology Psychiatry
DX: F32.9 Major depressive disorder, single episode, unspecified (principal); R45.851 Suicidal ideations; E78.5 Hyperlipidemia, unspecified; F09 Unspecified mental disorder due to known physiological condition; F17.200 Nicotine dependence, unspecified, uncomplicated; F43.10 Post-traumatic stress disorder, unspecified; F79 Unspecified intellectual disabilities; G40.909 Epilepsy, unspecified, not intractable, without status epilepticus; I10 Essential (primary) hypertension; Z79.82 Long term (current) use of aspirin; Z79.899 Other long term (current) drug therapy; Z91.410 Personal history of adult physical and sexual abuse; Z88.2 Allergy status to sulfonamides
CPT/HCPCS: 36415; 80048; 80061; 80306; 81001; 81025; 82075; 83036; 84443; 85025; 94640; 99285

== ENCOUNTER 2018-10-18 17:18 | Emergency (ER) | payer OTHER ==
[2018-10-18 17:49] VITALS: RESP 18; TEMP 98.1
--- NOTE | 2018-10-18 18:49 | ED ---
Psych HPI - General Chief Complaint: Psychiatric Symptoms Stated Complaint: EPS Eval Time Seen by Provider: 10/18/18 17:21 Source: patient, EMS, RN notes reviewed Mode of arrival: EMS Limitations: no limitations - History of Present Illness Initial Comments: This a 38-year-old female presents emergency department via EMS from [facility] for psychiatric evaluation. Patient states she is depressed, suicidal. Patient states that resident's have been picking on her as blister over the edge. Patient denies any suicidal plan denies any homicidal ideation or drug use no alcohol abuse - Related Data Home Medications Medication Instructions Recorded Confirmed Ammonium Lactate Lotion 1 applic TOPICAL DAILY 09/23/17 10/18/18 [Lac-Hydrin 12% Lotion] Aspirin 81 mg PO DAILY 09/23/17 10/18/18 Butalb/APAP/Caff 50-325-40Mg 1 tab PO BID PRN 09/23/17 10/18/18 [Fioricet 50-325-40] Fluticasone Nasal [place] [Flonase 2 spr EA NOSTRIL DAILY 09/23/17 10/18/18 Nasal [place]] LORazepam [Ativan] 0.5 mg PO DAILY PRN 09/23/17 10/18/18 Lacosamide [Vimpat] 100 mg PO BID 09/23/17 10/18/18 Ranitidine HCl [Zantac] 150 mg PO BID PRN 09/23/17 10/18/18 Topiramate [Topamax] 100 mg PO BID 09/23/17 10/18/18 Topiramate [Trokendi Xr] 200 mg PO BID 09/23/17 10/18/18 fluvoxaMINE MALEATE [Fluvoxamine 150 mg PO BID 09/23/17 10/18/18 Maleate] Eslicarbazepine Acetate [Aptiom] 600 mg PO DAILY 10/18/18 10/18/18 [place] Carbonate 150 mg PO HS 10/18/18 10/18/18 [place] Carbonate 600 mg PO HS 10/18/18 10/18/18 Prazosin [Minipress] 1 mg PO QAM 10/18/18 10/18/18 Primidone [Mysoline] 50 mg PO HS 10/18/18 10/18/18 Previous Rx's Medication Instructions Recorded Melatonin 3 mg PO HS #28 tablet 10/05/17 Prazosin [Minipress] 2 mg PO BID #84 cap 10/05/17 risperiDONE [RisperDAL] 1 mg PO DAILY #28 tab 10/05/17 risperiDONE [RisperDAL] 2 mg PO HS #28 tab 10/05/17 Allergies Allergy/AdvReac Type Severity Reaction Status Date / Time Sulfa (Sulfonamide Allergy Rash/Hives Verified 10/18/18 17:33 Antibiotics) Review of Systems ROS Statement: Those systems with pertinent positive or pertinent negative responses have been documented in the HPI. ROS Other: All systems not noted in ROS Statement are negative. Past Medical History Past Medical History: Hyperlipidemia, Hypertension, Seizure Disorder Additional Past Medical History / Comment(s): cognitive disorder History of Any Multi-Drug Resistant Organisms: None Reported Past Surgical History: No Surgical Hx Reported Past Psychological History: PTSD Smoking Status: Current every day smoker Past Alcohol Use History: None Reported Past Drug Use History: None Reported General Exam Limitations: altered mental status General appearance: alert, in no apparent distress Eye exam: Present: normal appearance, PERRL, EOMI. Absent: scleral icterus, conjunctival injection, periorbital swelling ENT exam: Present: normal exam, mucous membranes moist Neck exam: Present: normal inspection, full ROM. Absent: tenderness, meningismus, lymphadenopathy Respiratory exam: Present: normal lung sounds bilaterally. Absent: respiratory distress, wheezes, rales, rhonchi, stridor Cardiovascular Exam: Present: regular rate, normal rhythm, normal heart sounds. Absent: systolic murmur, diastolic murmur, rubs, gallop, clicks Neurological exam: Present: alert, oriented X3, CN II-XII intact Psychiatric exam: Present: depressed Course Vital Signs 10/18/18 17:30 Temperature 98.1 F Pulse Rate 55 L Respiratory 18 Rate Blood Pressure 105/66 O2 Sat by Pulse 98 Oximetry Medical Decision Making - Medical Decision Making Patient evaluated by EPS and case discussed with psychiatrist recommends patient be discharged [facility] home, father didn't come and talk to the patient and which he will this patient tomorrow. Disposition Clinical Impression: Depression Disposition: HOME SELF-CARE Condition: Stable Instructions (If sedation given, give patient instructions): Depression (ED) Additional Instructions: Please return to the Emergency Department if symptoms worsen or any other concerns. Is patient prescribed a controlled substance at d/c from ED?: No Referrals: Sunshine Shipley DO [Primary Care Provider] - 1-2 days Time of Disposition: 20:20
[2018-10-18 21:20] LABS: Appearance,Urine Clear (Clear); Bacteria,Urine Occasional /hpf; Bilirubin,Urine Negative (Negative); Blood,Urine Negative (Negative); Color,Urine Light Yellow; Glucose,Urine (UA) Negative (Negative); Ketones,Urine Negative (Negative); Leukocyte Esterase,Urine Small (Negative); Nitrite,Urine Negative (Negative); Protein,Urine Negative (Negative); RBC,Urine <1 /hpf (0-5); Specific Gravity,Urine 1.008 (1.001-1.035); Squamous Epithelial Cell,Urine 1 /hpf (0-4); Urobilinogen,Urine <2.0 mg/dL (<2.0)
[2018-10-18 21:30] LABS: Amphetamine Screen,Urine Not Detected (NotDetected); Barbiturate Screen,Urine Detected (NotDetected); Benzodiazepines Screen,Urine Not Detected (NotDetected); Cocaine Screen,Urine Not Detected (NotDetected); Methadone Screen, Urine Not Detected (NotDetected); Opiate Screen,Urine Not Detected (NotDetected); Oxycodone Screen, Urine Not Detected (NotDetected); Phencyclidine Screen,Urine Not Detected (NotDetected); Tricyclic Antidepressant,Urine Not Detected (NotDetected); Urn Cannabinoid Scrn Not Detected (NotDetected)
[2018-10-18 21:43] VITALS: BP 93/56; PULSE 77
== END 2018-10-18 21:43 | disposition home or self-care (01) ==
LOC: EC 17:18
DX: R45.851 Suicidal ideations (principal); F32.9 Major depressive disorder, single episode, unspecified; E78.5 Hyperlipidemia, unspecified; I10 Essential (primary) hypertension; G40.909 Epilepsy, unspecified, not intractable, without status epilepticus; F43.10 Post-traumatic stress disorder, unspecified; F17.200 Nicotine dependence, unspecified, uncomplicated; Z79.899 Other long term (current) drug therapy; Z79.82 Long term (current) use of aspirin; Z88.2 Allergy status to sulfonamides
CPT/HCPCS: 80306; 81001; 82075; 99285

== ENCOUNTER 2018-10-20 20:36 | Emergency (ER) | payer OTHER ==
[2018-10-20 20:42] VITALS: BP 127/85; PULSE 68; RESP 18; TEMP 98.3
--- NOTE | 2018-10-20 20:55 | ED ---
General Adult HPI - General Chief complaint: Psychiatric Symptoms Stated complaint: mental health Time Seen by Provider: 10/20/18 20:43 Source: patient, family Mode of arrival: ambulatory Limitations: no limitations - History of Present Illness Initial comments: Dictation was produced using [employer] dictation software. please excuse any grammatical, word or spelling errors. Chief Complaint: 38-year-old female past medical history of developmental delay, seizure disorder presents with suicidal ideation. History of Present Illness: Patient is a 38-year-old female she presents today with suicidal ideation. Patient has a history of depression. She states that today she felt like hurting herself with a wine bottle. She is plan on cardiac herself with shards of glass. Patient has history of suicidal ideation the past. Patient has any auditory or visual hallucinations. Denies any homicidal ideation. Patient takes multiple medications for seizures and psychiatric disease. The ROS documented in this emergency department record has been reviewed and confirmed by me. Those systems with pertinent positive or negative responses have been documented in the HPI. All other systems are other negative and/or noncontributory. PHYSICAL EXAM: General Impression: Alert and oriented x3, not in acute distress HEENT: Normocephalic atraumatic, extra-ocular movements intact, pupils equal and reactive to light bilaterally, mucous membranes moist. Cardiovascular: Heart regular rate and rhythm, S1&S2 audible, no murmurs, rubs or gallops Chest: Lungs clear to auscultation bilaterally, no rhonchi, no wheeze, no rales Abdomen: Bowel sounds present, abdomen soft, non-tender, non-distended, no organomegaly Musculoskeletal: Pulses present and equal in all extremities, no peripheral edema Motor: no focal deficits noted Neurological: CN II-XII grossly intact, no focal motor or sensory deficits noted Skin: Intact with no visualized rashes Psych: Tearful ED course: 38-year-old female with psychiatric disease presents with suicidal ideation and depression. Vital signs upon arrival are within acceptable limits. Patient medically cleared for EPS evaluation. Patient was evaluated by EPS. Patient has been having difficulties with other members at the [facility] home. Patient is well-known to our EPS team. Patient be discharged home patient is unsafe living arrangement. Advised to follow-up with outpatient psychiatrist upon discharge. Family and patient are understandable and agreeable to disposition. Patient denies any suicidal ideation upon reevaluation. She has coping classes arranged for outpatient. - Related Data Home Medications Medication Instructions Recorded Confirmed Ammonium Lactate Lotion 1 applic TOPICAL DAILY PRN 09/23/17 10/20/18 [Lac-Hydrin 12% Lotion] Aspirin 81 mg PO DAILY 09/23/17 10/20/18 Butalb/APAP/Caff 50-325-40Mg 1 tab PO BID PRN 09/23/17 10/20/18 [Fioricet 50-325-40] Fluticasone Nasal [place] [Flonase 2 spr EA NOSTRIL DAILY 09/23/17 10/20/18 Nasal [place]] LORazepam [Ativan] 0.5 mg PO DAILY PRN 09/23/17 10/20/18 Lacosamide [Vimpat] 100 mg PO BID 09/23/17 10/20/18 Ranitidine HCl [Zantac] 150 mg PO BID PRN 09/23/17 10/20/18 Topiramate [Topamax] 100 mg PO BID 09/23/17 10/20/18 Topiramate [Trokendi Xr] 200 mg PO BID 09/23/17 10/20/18 fluvoxaMINE MALEATE [Fluvoxamine 150 mg PO BID 09/23/17 10/20/18 Maleate] Eslicarbazepine Acetate [Aptiom] 600 mg PO DAILY 10/18/18 10/20/18 [place] Carbonate 150 mg PO HS 10/18/18 10/20/18 [place] Carbonate 600 mg PO HS 10/18/18 10/20/18 Prazosin [Minipress] 1 mg PO QAM 10/18/18 10/20/18 Primidone [Mysoline] 50 mg PO HS 10/18/18 10/20/18 Prazosin [Minipress] 2 mg PO HS 10/20/18 10/20/18 Previous Rx's Medication Instructions Recorded Melatonin 3 mg PO HS #28 tablet 10/05/17 risperiDONE [RisperDAL] 1 mg PO DAILY #28 tab 10/05/17 risperiDONE [RisperDAL] 2 mg PO HS #28 tab 10/05/17 Allergies Allergy/AdvReac Type Severity Reaction Status Date / Time Sulfa (Sulfonamide Allergy Rash/Hives Verified 10/20/18 22:06 Antibiotics) Review of Systems ROS Statement: Those systems with pertinent positive or pertinent negative responses have been documented in the HPI. ROS Other: All systems not noted in ROS Statement are negative. Past Medical History Past Medical History: Hyperlipidemia, Hypertension, Seizure Disorder Additional Past Medical History / Comment(s): cognitive disorder History of Any Multi-Drug Resistant Organisms: None Reported Past Surgical History: No Surgical Hx Reported Past Psychological History: PTSD Smoking Status: Current every day smoker Past Alcohol Use History: None Reported Past Drug Use History: None Reported General Exam Limitations: no limitations Course Vital Signs 10/20/18 20:38 Temperature 98.3 F Pulse Rate 68 Respiratory 18 Rate Blood Pressure 127/85 O2 Sat by Pulse 98 Oximetry Disposition Clinical Impression: Adjustment reaction Disposition: HOME SELF-CARE Condition: Good Instructions (If sedation given, give patient instructions): Suicide Prevention (ED) Is patient prescribed a controlled substance at d/c from ED?: No Referrals: Sunshine Shipley DO [Primary Care Provider] - 1-2 days Time of Disposition: 22:31
[2018-10-20 22:39] LABS: Cocaine Screen,Urine Not Detected (NotDetected); Phencyclidine Screen,Urine Not Detected (NotDetected); Urn Cannabinoid Scrn Not Detected (NotDetected)
[2018-10-20 22:40] LABS: Amphetamine Screen,Urine Not Detected (NotDetected); Barbiturate Screen,Urine Detected (NotDetected); Benzodiazepines Screen,Urine Detected (NotDetected); Methadone Screen, Urine Not Detected (NotDetected); Opiate Screen,Urine Not Detected (NotDetected); Oxycodone Screen, Urine Not Detected (NotDetected); Tricyclic Antidepressant,Urine Not Detected (NotDetected)
== END 2018-10-20 22:47 | disposition home or self-care (01) ==
LOC: EC 20:36
DX: F43.20 Adjustment disorder, unspecified (principal); R45.851 Suicidal ideations; E78.5 Hyperlipidemia, unspecified; I10 Essential (primary) hypertension; G40.909 Epilepsy, unspecified, not intractable, without status epilepticus; F43.10 Post-traumatic stress disorder, unspecified; F17.200 Nicotine dependence, unspecified, uncomplicated; F09 Unspecified mental disorder due to known physiological condition; Z79.82 Long term (current) use of aspirin; Z79.899 Other long term (current) drug therapy; Z88.2 Allergy status to sulfonamides
CPT/HCPCS: 80306; 81025; 82075; 99285